=== PATIENT | male | born 1965 | race Caucasian/White ===

== ENCOUNTER → 2021-02-04 01:55 | Outpatient (CLI) | payer BC, SELFPAY ==
[2021-02-04 19:39] LABS: SARS-CoV-2 RNA PCR Negative
== END ==
PROVIDERS: PCP Family Medicine; Visit Provider Internal Medicine Gastroenterology
DX: Z01.812 Encounter for preprocedural laboratory examination (principal); Z20.822 Contact with and (suspected) exposure to COVID-19
CPT/HCPCS: C9803; U0003; U0005

== ENCOUNTER 2021-02-07 01:23 | Day surgery (SDC) | payer BC, SELFPAY ==
[2021-01-26 14:13] VITALS: BMI 36.8
[2021-02-07 09:02] VITALS: BP 144/92; PULSE 97; RESP 18; TEMP 36.4; O2SAT 98; BMI 35.5
[2021-02-07] MEDS: LACTATED RINGERS 1,000 ML 150 ML IV CONT (09:04)
--- NOTE | 2021-02-07 09:33 | WPDANESEPPF ---
Anes - Initial Pre Proc Eval Procedure: Operation Date: 02/07/21 10:00 Proposed Procedures p Esophagogastroduodenoscopy - Neville Don MD Date/Time: 02/07/21 09:33 Surgeon: Neville Don MD Pre Op Diagnosis: epigastric pain Patient Data Age: 55 Gender: M Height: 5 ft 8 in Weight: 106 kg Last Vital Signs Temp 97.6 F 02/07/21 09:02 Pulse 97 02/07/21 09:02 Resp 18 02/07/21 09:02 BP 144/92 H 02/07/21 09:02 Pulse Ox 98 02/07/21 09:02 Allergies Allergy/AdvReac Type Severity Reaction Status Date / Time No Known Allergies Allergy Verified 02/07/21 09:01 Home Medications Medication Instructions Recorded Confirmed Type cetirizine 10 mg capsule 10 mg PO DAILY PRN #30 cap 12/27/20 01/26/21 Rx fluticasone propionate 50 1 spray INTRANASAL DAILY #16 g 12/27/20 01/26/21 Rx mcg/actuation nasal spray,suspension testosterone enanthate 100 mg/0.5 100 mg SUBCUT WEEKLY 01/12/21 01/26/21 History mL subcutaneous auto-injector Patient hx anesthesia problems: none Family hx anesthesia problems: none PMFSH Past Medical History Medical History Acute arthritis Anxiety Social History Social History Years smoked: 1 Smoking status: Former smoker Alcohol intake: current Drinks per week: 5 Substance use: never Living arrangements: alone Gender identity (if verbalized by the patient): Male Anes - Eval Final PreProcedure Day of Procedure 02/07/21 09:33 Patient weight: obese Heart: regular rate and rhythm Lungs: clear to auscultation Airway: Mallampati scale class II Neurological: alert and oriented Last oral intake: >/= 8 hours ASA classification: II Emergent: no Anesthetic plan: proceed Anesthesia type and monitoring: general GIVS and standard monitoring Informed Consent: The patient's anesthetic plan and its attendant risks and benefits were discussed with the patient/family/POA. Questions were solicited and answers provided to the satisfaction of the patient/family/POA.
[2021-02-07 10:13] VITALS: BP 144/80; PULSE 76; RESP 18; O2SAT 98
--- NOTE | 2021-02-07 10:16 | PM.HPGS ---
History of Present Illness History of Present Illness Consent: Risks, benefits, and alternatives have been discussed and questions answered. Patient agrees to proceed with procedure. Chief complaint: epigastric pain Narrative: Aleks Davis is a 55 year old male Being investigated for difficulty swallowing and substernal chest pain not responsive to [id number] treatments for GERD Review of Systems Review of Systems: All systems reviewed & are unremarkable except as noted in HPI and below PMFSH Past Medical History Medical History Acute arthritis Anxiety Social History Social History Years smoked: 1 Smoking status: Former smoker Alcohol intake: current Drinks per week: 5 Substance use: never Living arrangements: alone Gender identity (if verbalized by the patient): Male Meds Home Medications and Allergies Home Medications Medication Instructions Recorded Confirmed Type cetirizine 10 mg capsule 10 mg PO DAILY PRN #30 cap 12/27/20 01/26/21 Rx fluticasone propionate 50 1 spray INTRANASAL DAILY #16 g 12/27/20 01/26/21 Rx mcg/actuation nasal spray,suspension testosterone enanthate 100 mg/0.5 100 mg SUBCUT WEEKLY 01/12/21 01/26/21 History mL subcutaneous auto-injector Allergies Allergy/AdvReac Type Severity Reaction Status Date / Time No Known Allergies Allergy Verified 02/07/21 09:01 Vital Signs Vital Signs - 24 hr 02/07/21 09:02 Temperature 36.4 C Pulse Rate 97 Respiratory Rate 18 Blood Pressure 144/92 H Pulse Oximetry 98 Exam Const: General: alert Orientation/consciousness: patient oriented x3 Resp: Auscultation: clear to auscultation bilaterally Cardio: Rhythm: regular rhythm GI: GI Palp: Yes Soft to palpation and No Tenderness to palpation present (GI) Neuro: General: patient oriented x3 Assessment and Plan Assessment and plan (1) GERD (gastroesophageal reflux disease): Qualifiers: Esophagitis presence: esophagitis presence not specified Qualified Code(s): K21.9 - Gastro-esophageal reflux disease without esophagitis Code(s): K21.9 - Gastro-esophageal reflux disease without esophagitis Status: Acute Assessment and Plan: EGD with possible biopsy or dilatation or cautery.
[2021-02-07 10:23] VITALS: BP 138/62; PULSE 72; RESP 20; O2SAT 98
[2021-02-07 10:33] VITALS: BP 142/78; PULSE 74; RESP 18; O2SAT 98
== END 2021-02-07 11:10 | disposition home or self-care (01) ==
PROVIDERS: PCP Family Medicine; Visit Provider Internal Medicine Gastroenterology
PROC: 0DJ08ZZ Inspection of Upper Intestinal Tract, Via Natural or Artificial Opening Endoscopic (ICD-10-PCS; CPT 43235; principal; 2021-02-07 10:00)
DX: K21.9 Gastro-esophageal reflux disease without esophagitis (principal); F41.9 Anxiety disorder, unspecified; Z87.891 Personal history of nicotine dependence; E66.9 Obesity, unspecified; Z68.35 Body mass index [BMI] 35.0-35.9, adult
CPT/HCPCS: 43239; 87081; 88305; J2704; J7120

== ENCOUNTER 2022-03-22 04:17 | Emergency (ER) | payer BC, SELFPAY ==
[2022-03-22] VITALS (10 sets, daily range): BP systolic 141–154; BP diastolic 89–95; PULSE 79–97; RESP 16–19; TEMP 36.6; O2SAT 96–98
[2022-03-22 04:47] LABS: Basophils Absolute Auto 0.1 K/mm3 (0.0-0.1); Basophils Percent Auto 0.7 % (0.2-1.2); Eosinophils Absolute Auto 0.2 K/mm3 (0-0.3); Eosinophils Percent Auto 1.7 % (0-4.4); Hematocrit 52.9 % (42.0-52.0); Hemoglobin 17.3 g/dL (14.0-18.0); Immature Granulocyte Absolute 0.03 K/mm3 (0.00-0.031); Immature Granulocyte Percent A 0.3 % (0-0.5); Lymphocytes Absolute Auto 1.47 K/mm3 (0.9-3.2); Lymphocytes Percent Auto 16.8 % (18.3-44.2); Mean Corpuscular HGB Conc 32.7 g/dl (32-36); Mean Corpuscular Hemoglobin 28.1 pg (26-34); Mean Platelet Volume 9.7 fl (7.4-10.4); Monocytes Absolute Auto 1.1 K/mm3 (0.1-0.6); Monocytes Percent Auto 12.3 % (2.6-8.5); Neutrophils Percent Auto 68.2 % (45.5-73.1); Platelet Count Result 197 k/mm3 (150-375); Red Blood Count 6.15 M/mm3 (4.6-6.20); Red Cell Distribution Width 13.4 % (11.5-14.5); White Blood Count 8.8 K/mm3 (4.5-10.0)
[2022-03-22 04:59] LABS: Alanine Aminotransferase 31 U/L (6-50); Albumin Level 4.6 g/dL (3.5-5.1); Alkaline Phosphatase 61 U/L (38-126); Anion Gap 9 mmol/L (8-16); Aspartate Amino Transferase 34 U/L (17-59); Bilirubin,Total 0.7 mg/dL (0.2-1.3); Blood Urea Nitrogen 13 mg/dL (9-20); Calcium 9.2 mg/dL (8.4-10.2); Carbon Dioxide 24 mmol/L (22-30); Chloride 104 mmol/L (98-107); Estimated CRCL calculation 83 ml/min; Estimated Glomerular Filt Rate > 60; Glucose 111 mg/dL (65-110); Lipase 157 U/L (23-300); Potassium 4.1 mmol/L (3.4-5.0); Sodium 137 mmol/L (137-145)
--- NOTE | 2022-03-22 05:01 | ED.NAVMDI ---
HPI - Nausea/Vomiting/Diarrhea General Chief complaint: Nausea/Vomiting/Diarrhea Stated complaint: diarrhea Time Seen by Provider: 03/22/22 04:40 History of Present Illness HPI Narrative: Patient is a 56-year-old male who presents ER with diarrhea. Occurring every 20 minutes since midnight. No blood. No fevers or chills or sweats. Has some nausea but no vomiting. Reports he had diarrhea about 1 week ago that lasted for 2 days but then it went away. No fevers or chills or sweats. No known sick contacts. With patient's diarrhea he has diffuse abdominal pain that is nonlocalized. Reports that is a persistent pain but then he has increased sharp pain when he has to go to the bathroom. Related Data Home Medications Medication Instructions Recorded Confirmed testosterone enanthate 100 mg/0.5 100 mg subcut WEEKLY 01/12/21 03/13/22 mL subcutaneous auto-injector fluticasone propionate 50 1 spray intranasal PRN PRN Allergy 03/13/22 03/13/22 mcg/actuation nasal Symptoms spray,suspension (Flonase Allergy Relief) Allergies Allergy/AdvReac Type Severity Reaction Status Date / Time No Known Allergies Allergy Verified 03/22/22 04:20 Review of Systems Review of Systems: All systems reviewed & are unremarkable except as noted in HPI and below Constitutional: Constitutional: Denies chills, Reports fatigue and Denies fever(s) ENT: Denies nasal congestion and Denies sore throat Cardiovascular: Cardiovascular: Denies chest pain and Denies rapid heart rate Respiratory: Respiratory: Denies cough and Denies dyspnea Gastrointestinal: Gastrointestinal: Reports abdominal pain, Denies constipation, Reports diarrhea, Reports nausea and Denies vomiting [facility] Past Medical History Medical History (Updated 03/22/22 @ 06:32 by Scott Rivas MD) Acute arthritis Anxiety GERD (gastroesophageal reflux disease) Surgical History Surgical History (Updated 03/22/22 @ 05:03 by Scott Rivas MD) History of esophagogastroduodenoscopy (EGD) Social History Social History (Updated 07/08/21 @ 16:13 by Emelyn Chan) Years smoked: 1 Smoking status: Former smoker Alcohol intake: current Drinks per week: 5 Substance use: never Substance use type: does not use Gender identity (if verbalized by the patient): Male Sexual Orientation (if Verbalized by the Patient): Straight or Heterosexual Spiritual care concerns: No Exam Narrative: GENERAL: Well-appearing, well-nourished, and in no acute distress. HEAD: Normocephalic, atraumatic. EYES: PERRL and EOMI. CHEST: Clear to auscultation. No respiratory distress. HEART: Regular rate and rhythm. Normal peripheral pulses. ABDOMEN: Soft, nontender, nondistended. EXTREMITIES: Normal range of motion. No edema. SKIN: Warm, dry, no rash. NEURO: Alert and oriented x3. PSYCH: Normal mood and affect. Course Course Emergency Course: Patient resting comfortably in the room. Abdomen is soft and nontender. No longer having any pain. He reports that his only issue is that he still having frequent diarrhea. Labs unremarkable. He has been hydrated with 1 L of normal saline. Do not feel patient requires imaging at this time. Recommend hydration at home. Has follow-up already established with GI in 1 week. Vital Signs Vital signs: Vital Signs Temperature 97.8 F 03/22/22 04:18 Pulse Rate 97 03/22/22 04:18 Respiratory Rate 18 03/22/22 04:18 Blood Pressure 153/94 H 03/22/22 04:18 Pulse Oximetry 98 03/22/22 04:18 Oxygen Delivery Room Air 03/22/22 04:18 Temperature 97.8 F 03/22/22 04:18 Pulse Rate 95 03/22/22 04:35 Respiratory Rate 16 03/22/22 04:35 Blood Pressure 154/95 H 03/22/22 04:35 Pulse Oximetry 96 03/22/22 04:35 Oxygen Delivery Room Air 03/22/22 04:18 MDM - Nausea/Vomiting/Diarrhea Lab Data Result diagrams: 03/22/22 04:38 03/22/22 04:38 Labs: Lab Results
[2022-03-22] MEDS: SODIUM CHLORIDE 0.9% IV 1,000 ML 999 ML IV CONT (05:03)
[2022-03-22 06:02] LABS: Mucus Urine Rare /lpf; RBC Urine 0-2 /hpf (0-2); Squamous Epithelial Cell Urine Rare /hpf (Few); WBC Urine 0-3 /hpf
[2022-03-22 06:07] LABS: Appearance Urine Clear (Clear); Bilirubin Urine Negative (Negative); Blood Urine Negative (Negative); Color Urine Yellow (Yellow); Glucose Urine UA Negative (Negative); Ketones Urine Negative (Negative); Leukocyte Esterase Ur Negative LEU/UL (Negative); Nitrate Urine Negative (Negative); Protein Urine Negative (Negative); Urobilinogen Urine 0.2 mg/dL (<2.0); pH Urine 5.5 (5.0-9.0)
[2022-03-22 06:13] LABS: Add Urine Microscopic? NO
== END 2022-03-22 06:42 | disposition home or self-care (01) ==
PROVIDERS: Emergency Provider Emergency Medicine; PCP Family Medicine
DX: K52.9 Noninfective gastroenteritis and colitis, unspecified (principal); K21.9 Gastro-esophageal reflux disease without esophagitis; M19.90 Unspecified osteoarthritis, unspecified site; Z87.891 Personal history of nicotine dependence
CPT/HCPCS: 36415; 80053; 81003; 83690; 85025; 96360; 99283; J7030

== ENCOUNTER 2022-03-30 01:36 | Day surgery (SDC) | payer BC, SELFPAY ==
[2022-03-13 15:51] VITALS: BMI 32.7
--- NOTE | 2022-03-29 15:27 | PM.HPGS ---
History of Present Illness History of Present Illness Consent: Risks, benefits, and alternatives have been discussed and questions answered. Patient agrees to proceed with procedure. Chief complaint: neoplasm screening Narrative: Aleks Davis is a 56 year old male Referred for colon cancer screening. He had an adenomatous polyp removed 5 years ago. Review of Systems Review of Systems: All systems reviewed & are unremarkable except as noted in HPI and below PMFSH Past Medical History Medical History Acute arthritis Anxiety GERD (gastroesophageal reflux disease) Surgical History Surgical History History of esophagogastroduodenoscopy (EGD) Social History Social History Years smoked: 1 Smoking status: Former smoker Alcohol intake: current Drinks per week: 5 Substance use: never Substance use type: does not use Living arrangements: with family Gender identity (if verbalized by the patient): Male Sexual Orientation (if Verbalized by the Patient): Straight or Heterosexual Spiritual care concerns: No Meds Home Medications and Allergies Home Medications Medication Instructions Recorded Confirmed Type cetirizine 10 mg capsule (Zyrtec) 10 mg PO DAILY PRN allergy 12/27/20 03/30/22 Rx symptoms #30 caps testosterone enanthate 100 mg/0.5 100 mg subcut WEEKLY 01/12/21 03/30/22 History mL subcutaneous auto-injector omeprazole 40 mg capsule,delayed 40 mg PO DAILY #90 caps 12/19/21 03/30/22 Rx release fluticasone propionate 50 1 spray intranasal PRN PRN Allergy 03/13/22 03/30/22 History mcg/actuation nasal Symptoms spray,suspension (Flonase Allergy Relief) Allergies Allergy/AdvReac Type Severity Reaction Status Date / Time No Known Allergies Allergy Verified 03/30/22 08:12 Exam Resp: Auscultation: clear to auscultation bilaterally Cardio: Rate: regular rate Rhythm: regular rhythm GI: GI Palp: Yes Soft to palpation and No Tenderness to palpation present (GI) Assessment and Plan Assessment and plan (1) Colon cancer screening: Code(s): Z12.11 - Encounter for screening for malignant neoplasm of colon Status: Acute Assessment and Plan: Colonoscopy with possible biopsy or polypectomy or cautery or injection of substances.
[2022-03-30 08:13] VITALS: BP 147/101; PULSE 94; RESP 18; TEMP 36.3; O2SAT 97
[2022-03-30] MEDS: LACTATED RINGERS 1,000 ML 150 ML IV CONT (08:16)
--- NOTE | 2022-03-30 08:56 | P.PNAN_ITS ---
Anes - Initial Pre Proc Eval Procedure: Operation Date: 03/30/22 09:30 Proposed Procedures p Screening Colonoscopy - Neville Don MD Date/Time: 03/30/22 08:56 Surgeon: Neville Don MD Pre Op Diagnosis: neoplasm screening Patient Data Age: 56 Gender: M Height: 1.73 m Weight: 101.8 kg Last Vital Signs Temp 97.3 F L 03/30/22 08:13 Pulse 94 03/30/22 08:13 Resp 18 03/30/22 08:13 BP 147/101 H 03/30/22 08:13 Pulse Ox 97 03/30/22 08:13 O2 Del Method Room Air 03/30/22 08:13 Allergies Allergy/AdvReac Type Severity Reaction Status Date / Time No Known Allergies Allergy Verified 03/30/22 08:12 Home Medications Medication Instructions Recorded Confirmed Type cetirizine 10 mg capsule (Zyrtec) 10 mg PO DAILY PRN allergy 12/27/20 03/30/22 Rx symptoms #30 caps testosterone enanthate 100 mg/0.5 100 mg subcut WEEKLY 01/12/21 03/30/22 History mL subcutaneous auto-injector omeprazole 40 mg capsule,delayed 40 mg PO DAILY #90 caps 12/19/21 03/30/22 Rx release fluticasone propionate 50 1 spray intranasal PRN PRN Allergy 03/13/22 03/30/22 History mcg/actuation nasal Symptoms spray,suspension (Flonase Allergy Relief) Patient hx anesthesia problems: none Family hx anesthesia problems: none Results Review: All pre-operative results and documents have been reviewed as part of the pre- operative evaluation. [facility] Past Medical History Medical History Acute arthritis Anxiety GERD (gastroesophageal reflux disease) Surgical History Surgical History History of esophagogastroduodenoscopy (EGD) Social History Social History Years smoked: 1 Smoking status: Former smoker Alcohol intake: current Drinks per week: 5 Substance use: never Substance use type: does not use Living arrangements: with family Gender identity (if verbalized by the patient): Male Sexual Orientation (if Verbalized by the Patient): Straight or Heterosexual Spiritual care concerns: No Anes - Eval Final PreProcedure Day of Procedure 03/30/22 08:56 Patient weight: obese Heart: regular rate and rhythm Lungs: clear to auscultation Airway: Mallampati scale class II Neurological: alert and oriented Last oral intake: >/= 8 hours ASA classification: II Emergent: no Anesthetic plan: proceed Anesthesia type and monitoring: general GIVS and standard monitoring Results Review: All pre-operative results and documents have been reviewed as part of the pre- operative evaluation. Informed Consent: The patient's anesthetic plan and its attendant risks and benefits were discussed with the patient/family/POA. Questions were solicited and answers provided to the satisfaction of the patient/family/POA.
[2022-03-30 09:30] VITALS: BP 103/57; PULSE 85; RESP 16; O2SAT 92
[2022-03-30 09:40] VITALS: BP 110/87; PULSE 80; RESP 22; O2SAT 94
[2022-03-30 09:50] VITALS: BP 129/87; PULSE 73; RESP 21; O2SAT 93
== END 2022-03-30 10:07 | disposition home or self-care (01) ==
PROVIDERS: PCP Family Medicine; Visit Provider Internal Medicine Gastroenterology
PROC: 0DJD8ZZ Inspection of Lower Intestinal Tract, Via Natural or Artificial Opening Endoscopic (ICD-10-PCS; CPT 45378; principal; 2022-03-30 09:30)
DX: Z12.11 Encounter for screening for malignant neoplasm of colon (principal); K63.5 Polyp of colon; K21.9 Gastro-esophageal reflux disease without esophagitis; Z87.891 Personal history of nicotine dependence; E66.9 Obesity, unspecified; Z68.34 Body mass index [BMI] 34.0-34.9, adult
CPT/HCPCS: 45380; 88305; J2704; J7120

== ENCOUNTER 2023-03-01 09:32 | Outpatient (CLI) | payer BC, SELFPAY ==
--- NOTE | 2023-03-01 15:00 | NEURO_ITS ---
IMPRESSION: Patient reports a history of bilateral hand pain, and numbness in the 4th and 5th digits of the right hand. # Nerve conduction findings suggestive of right ulnar neuropathy. # Early changes suggesting, mild left Carpal Tunnel Syndrome. # Normal needle exam. # Clinical correlation recommended. Nerve Conduction Studies Anti Sensory Summary Table Stim Site NR Peak (ms) P-T Amp (?V) Site1 Site2 Delta-P (ms) Dist (cm) Norman (m/s) Left Median Anti Sensory (2-3nd Digit) Wrist 4.1 17.3 Wrist 2-3nd Digit 4.1 14.0 34 Wrist 3.8 29.7 Wrist 2-3nd Digit 4.1 14.0 34 Right Median Anti Sensory (2-3nd Digit) Wrist 3.9 19.8 Wrist 2-3nd Digit 3.9 14.0 36 Wrist 3.7 24.0 Wrist 2-3nd Digit 3.9 14.0 36 Left Radial Anti Sensory (Base 1st Digit) Wrist 1.7 32.0 Wrist Base 1st Digit 1.7 0.0 Right Radial Anti Sensory (Base 1st Digit) Wrist 2.0 22.8 Wrist Base 1st Digit 2.0 0.0 Left Ulnar Anti Sensory (5th Digit) Wrist 3.0 27.4 Wrist 5th Digit 3.0 14.0 47 Right Ulnar Anti Sensory (5th Digit) Wrist 3.1 17.2 Wrist 5th Digit 3.1 14.0 45 Motor Summary Table Stim Site NR Onset (ms) O-P Amp (mV) Site1 Site2 Delta-0 (ms) Dist (cm) Norman (m/s) Left Median Motor (Abd Poll Brev) Wrist 3.0 6.7 Elbow Wrist 4.8 23.0 48 Elbow 7.8 5.5 Right Median Motor (Abd Poll Brev) Wrist 3.4 7.3 Elbow Wrist 4.6 23.0 50 Elbow 8.0 5.0 Left Ulnar Motor (Abd Dig Minimi) Wrist 2.7 6.0 A Elbow Wrist 6.1 31.0 51 A Elbow 8.8 5.1 B Elbow Wrist 4.1 22.0 54 B Elbow 6.8 5.1 Right Ulnar Motor (Abd Dig Minimi) Wrist 2.5 7.9 A Elbow Wrist 6.0 30.0 50 A Elbow 8.5 6.7 B Elbow Wrist 4.4 20.0 45 B Elbow 6.9 6.7 F Wave Studies NR F-Lat (ms) L-R F-Lat (ms) Left Median (Mrkrs) (Abd Poll Brev) 28.05 1.87 Right Median (Mrkrs) (Abd Poll Brev) 29.92 1.87 Left Ulnar (Mrkrs) (Abd Dig Min) 31.27 1.25 Right Ulnar (Mrkrs) (Abd Dig Min) 30.02 1.25 EMG Side Muscle Nerve Root Ins Act Fibs Amp Dur Recrt Comment Right 1stDorInt Ulnar C8-T1 Nml Nml Nml Nml Nml Right Ext Indicis Radial (Post Int) C7-8 Nml Nml Nml Nml Nml Right Ext Digitorum Radial (Post Int) C7-8 Nml Nml Nml Nml Nml Right BrachioRad Radial C5-6 Nml Nml Nml Nml Nml Right PronatorTeres Median C6-7 Nml Nml Nml Nml Nml Right Abd Poll Brev Median C8-T1 Nml Nml Nml Nml Nml Left 1stDorInt Ulnar C8-T1 Nml Nml Nml Nml Nml Left Ext Indicis Radial (Post Int) C7-8 Nml Nml Nml Nml Nml Left Ext Digitorum Radial (Post Int) C7-8 Nml Nml Nml Nml Nml Left BrachioRad Radial C5-6 Nml Nml Nml Nml Nml Left PronatorTeres Median C6-7 Nml Nml Nml Nml Nml Left Abd Poll Brev Median C8-T1 Nml Nml Nml Nml Nml MTDD
== END 2023-03-01 09:33 | disposition home or self-care (01) ==
PROVIDERS: PCP Family Medicine; Visit Provider Orthopaedic Surgery Hand Surgery
DX: R20.0 Anesthesia of skin (principal); R94.131 Abnormal electromyogram [EMG]
CPT/HCPCS: 95886; 95911

== ENCOUNTER 2024-08-04 11:03 | Outpatient (CLI) | payer BC, SELFPAY ==
--- NOTE | ~2024-08-04 | XR_ITS ---
XR hand LT min 3V Ordering provider: Avinash Mg, History: . Pain lt hand, SWOLLEN RADIAL WRIST SINCE CARPAL TUNNEL SURG . Comparison: February 06, 2019 FINDINGS: BONES: Small bony fragment adjacent to the scaphoid bone suggestive of a fracture. Clinical correlati on for tenderness in the area advised. Lucency in the scaphoid is also noted. JOINT SPACES: Well maintained. SOFT TISSUES: Unremarkable. IMPRESSION: No change from previous examination. Reviewed, dictated and finalized at location A.
== END 2024-08-04 11:04 | disposition home or self-care (01) ==
PROVIDERS: PCP Family Medicine; Visit Provider Orthopaedic Surgery Hand Surgery
DX: M79.642 Pain in left hand (principal)
CPT/HCPCS: 73130

== ENCOUNTER 2024-10-13 09:00 | Outpatient (RCR) | payer BC, SELFPAY ==
--- NOTE | 2024-09-05 09:18 | OTOPEVAL1 ---
Assessment and note entered by Lion Ross, BAYRON/Brandie, SHEFALIT OT Evaluation Information 09/05/24 Assessment Status Evaluation Diagnosis Pain in left hand ICD-10 Condition Codes (OT) M79.642,M25.532 Subjective Information Patient is s/p left carpal tunnel release and left thumb [facility] soft tissue reconstruction (LRTI). He is right handed. He is reporting residual pain and weakness that is limiting his left hand use for gripping, pinching, and carrying tasks. He reports he is unable to open a jar, use a knife to cut food, or hold his phone with his thumb in a lateral pinch. He states his pain never gets below 3/10. He does note that the paresthesia in the fingers has improved, however. Assessment OT Clinical Summary Patient referred to OT with dx of left hand pain. He presents with residual pain, stiffness, and weakness following left carpal tunnel release and left thumb LRTI procedure (14 weeks post op). Skilled OT indicated for HEP instruction/ progression, use of modalities for reduced pain and improved tissue extensibility, therapeutic exercise, and manual therapy to facilitate optimal functional use of his left hand. Plan of Care Interventions Therapeutic Exercise,Manual Therapy,Therapeutic Activities,Hot Pack/Cold Pack,Ultrasound,Paraffin OT Services Indicated Yes Treatment Frequency and 1x/week for 6 visits Duration These treatments will address the objective and functional deficits as defined above. The patient will be advanced safely and appropriately in order for the patient to progress towards his/her prior level of function. Additional exercises will be introduced and as well as a comprehensive home exercise program upon discharge, if needed, ?to ensure carryover of functional gains achieved in the clinic. This treatment plan has been reviewed and agreement upon by the patient.
--- NOTE | 2024-09-05 09:18 | OPREHPOC ---
Outpatient Therapy Plan of Care This is a Multidisciplinary Plan of Care that may contain components documented by all disciplines (PT, OT, and ST.) OT Problem 1 OT Problem #1 Knowledge Deficit OT Goal 1 Goal / Goal Update 1. Patient to be independent with instructed materials. Target Visit 6 OT Problem 2 OT Problem #2 Pain OT Goal 1 Goal / Goal Update 1. Patient to be independent with non medication pain management - ROM - heat/ice - compression Target Visit 6 OT Problem 3 OT Problem #3 Impaired Range of Motion OT Goal 1 Goal / Goal Update Patient to improve left UE active ROM to facilitate improved functional flexibility for ADLs: 1. wrist flexion from 40 to [address] from 5 to 15 degrees 3. thumb opposition to be able to touch P1 of the small finger Target Visit 6 OT Problem 4 OT Problem #4 Impaired Strength OT Goal 1 Goal / Goal Update Patient to progress functional strength for ADLs as measured by: 1. being able to complete wrist strengthening with 3 lb. free weight x15 reps 2. being able to progress to red theraputty for filter cleaner/pinch strengthening Target Visit 6
--- NOTE | 2024-10-13 10:21 | OTOPDC ---
Assessment and note entered by Lion Ross, OTR/Brandie, CHT OT Discharge Information 10/13/24 Assessment Status Discharge Diagnosis Pain in left hand Subjective Information Patient reports progress in his left hand/wrist/ thumb since the start of care. He reports experiencing reduced pain with left hand use with gripping, pinching, and carrying tasks. He reports he is now able to open jars, use a knife to cut food, or hold his phone with his thumb in a lateral pinch. He reports median nerve paresthesia have resolved. At the start of care his pain did not get lower than 3/10 and now he has times of 0/ 10 pain if he hasn't done anything that day. With ADLs his pain gets up to 1-2/10. He is wearing a thumb brace for heavier tasks, like when working in the yard for example. Assessment OT Clinical Summary Patient has participated in 6 weeks of OT following left carpal tunnel release and left thumb LRTI procedure. He has made progress with reduced pain and improved strength, which has allowed for improved left hand use for ADLs. 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 He demonstrates excellent understanding of all materials and has a paraffin unit to use at home also. D/C OT with HEP. Plan of Care OT Services Indicated No
== END 2024-10-13 14:49 | disposition home or self-care (01) ==
LOC: ANHOT 09:00
PROVIDERS: PCP Family Medicine; Visit Provider Orthopaedic Surgery Hand Surgery
DX: M79.642 Pain in left hand (principal)
CPT/HCPCS: 97018; 97035; 97110; 97140; 97165